=== PATIENT | female | born 1960 | race Caucasian/White ===

== ENCOUNTER 2023-12-20 08:15 | Inpatient (IN) ==
[~2023-12-20 08:15] MED LIST: Buffered Lidocaine 1% SYRIN 1 ml INTRADERM ONE; Famotidine IV 10 MG/ML 2 ml VIAL (20 mg) IV ONE; Lactated Ringers 1000 ml BAG 1,000 ML IV SCH
[2023-12-20] MEDS ORDERED: Lidocaine 2% PF 5 ML VIAL ONE (13:53)
[2023-12-20] MEDS ORDERED: Propofol 10 MG/ML 20 ML BTL ONE (13:53)
[2023-12-20] MEDS ORDERED: fentaNYL 100 mcg/2 ml 50 MCG/ML VIAL ONE ×3 (13:54→19:21)
[2023-12-20] MEDS ORDERED: Rocuronium 50 mg VIAL 10 mg/ml 5 ml VIAL (50 mg) ONE ×2 (13:54→16:51)
[2023-12-20] MEDS ORDERED: Midazolam 2 mg/2 ml VIAL 1 mg/ml 2 ml VIAL (2 mg) ONE (13:54)
[2023-12-20] MEDS ORDERED: Tranexamic Acid 1 GM/100ML BAG 2,000 MG/200 ML BAG IV ONE (14:21)
[2023-12-20] MEDS ORDERED: Famotidine IV 10 MG/ML 2 ml VIAL (20 mg) ONE (14:22)
[2023-12-20] MEDS ORDERED: ceFAZolin 2 GM PREMIX 2 GM/50 ML BAG ONE (14:22)
[2023-12-20 14:50] LABS: Rapid COVID-19 Molecular Undetected (Undetected)
[2023-12-20] MEDS ORDERED: Lactulose 30 ml UDC PO PRN (15:26)
[2023-12-20] MEDS ORDERED: Ondansetron 4 mg VIAL 2 MG/ML 2 ml VIAL IV PRN ×2 (15:26→16:46)
[2023-12-20] MEDS ORDERED: Magnesium Hydroxide LIQ 30 ML UDC PO PRN (15:26)
[2023-12-20] MEDS ORDERED: Ondansetron ODT 4 mg TAB 4 MG TAB PO PRN (15:26)
[2023-12-20] MEDS ORDERED: Morphine 2 MG/ML SYRINGE IV PRN (15:26)
[2023-12-20] MEDS ORDERED: Scopolamine 1 mg/72hr PATCH ONE (15:35)
[2023-12-20] MEDS ORDERED: HYDROmorphone 0.5 MG/0.5 ML SYRINGE ONE ×3 (16:21→18:58)
[2023-12-20] MEDS ORDERED: Ondansetron 4 mg VIAL 2 MG/ML 2 ml VIAL ONE (16:22)
[2023-12-20] MEDS ORDERED: Dexamethasone IV 4 MG/ML VIAL 1 ml VIAL ONE (16:22)
[2023-12-20] MEDS ORDERED: Naloxone 0.4 mg VIAL 0.4 mg/ml 1 ml VIAL IV PRN (16:46)
[2023-12-20] MEDS ORDERED: Scopolamine 1 mg/72hr PATCH TRANSDERM PRN (16:46)
[2023-12-20] MEDS ORDERED: ROPIVACAINE 5 MG/ML 30 ML BTL (0.5%) ONE (16:59)
[2023-12-20] MEDS ORDERED: Acetaminophen IV 1 GM/100ML 1,000 MG/100 ML BAG IV ONE (18:12)
[2023-12-20] MEDS: fentaNYL 100 mcg/2 ml 50 MCG/ML VIAL IV PRN ×2 (19:25→19:30)
[2023-12-20] MEDS ORDERED: Albuterol HFA INHALER 8 gm MDI INH PRN (19:43)
[2023-12-20] MEDS ORDERED: CMCS: Venlafaxine 25 mg TAB (NF) PO SCH (21:00)
[2023-12-20] MEDS ORDERED: Mometasone/Formoter 100/5 MDI INH SCH (21:00)
[2023-12-20] MEDS: Magnesium Hydroxide LIQ 30 ML UDC PO SCH (21:23)
[2023-12-20] MEDS: Lactated Ringers 1000 ml BAG 1,000 ML IV SCH (22:19)
[2023-12-21] MEDS: ceFAZolin 1 GM ADVAN 1 GM in NS 0.9% 50 ML 50 ML IVPB SCH ×3 (00:33→15:38)
[2023-12-21 07:03] LABS: Hematocrit 35.7 % (35-45); Hemoglobin 12.4 g/dL (11.5-14.3); Mean Platelet Volume 8.9 fL (7.5-11.2); Platelet Count 239 10^3/uL (150-450)
[2023-12-21 07:21] LABS: Calcium 8.4 mg/dL (8.6-10.3); Creatinine, Serum 0.71 mg/dL (0.51-0.95); Potassium 3.9 mmol/L (3.5-5.0); eGFR CKD-EPI 94.9 (>60)
[2023-12-21] MEDS: Magnesium Hydroxide LIQ 30 ML UDC PO SCH (08:53)
[2023-12-21] MEDS: Lactated Ringers 1000 ml BAG 1,000 ML IV SCH (08:58)
[2023-12-21] MEDS ORDERED: Vitamin THERAPEUTIC TAB PO SCH (09:00)
[2023-12-21 13:41] VITALS: BP 128/63
== END 2023-12-21 17:00 | disposition home or self-care (01) | DRG 301 ==
LOC: INTOOBSV 13:56 → AA 13:56 → SSU 20:00
PROVIDERS: ADMIT Orthopaedic Surgery Adult Reconstructive Orthopaedic Surgery; ATTEND Orthopaedic Surgery Adult Reconstructive Orthopaedic Surgery